=== PATIENT | female | born 1985 | race Caucasian/White ===

== ENCOUNTER 2021-10-20 08:32 | Outpatient (REF) | payer OTHER, SELFPAY ==
[2021-10-20 08:56] LABS: MANUAL DIFF FLAG NO
[2021-10-20 09:16] LABS: Basophils Percent Auto 0.5 % (0-2); Eosinophils Absolute Auto 0.1 X10*3/uL (0.0-0.4); Eosinophils Percent Auto 1.7 % (0-4); Hematocrit 37.5 % (37.0-47.0); Hemoglobin 12.2 g/dl (12.0-16.0); Imm Gran Abs Auto 0.01 X10*3/uL (0.00-0.03); Imm Gran Pct Auto 0.2 % (0.0-0.4); Lymphocytes Absolute Auto 1.6 X10*3/uL (1.2-4.9); Lymphocytes Percent Auto 38.9 % (20-40); Mean Corpuscular HGB Conc 32.5 g/dl (31.0-35.0); Mean Corpuscular Hemoglobin 28.9 pg (27.0-33.0); Mean Corpuscular Volume 88.9 fL (80.0-98.0); Mean Platelet Volume 9.3 fL (9.4-12.3); Monocytes Absolute Auto 0.4 X10*3/uL (0.1-1.2); Monocytes Percent Auto 8.8 % (2-11); Neutrophils Percent Auto 49.9 % (45-73); Platelet Count 214 X10*3/uL (160-400); Red Blood Count 4.22 X10*6/uL (4.20-5.50); Red Cell Distribution Width 12.9 % (11.0-16.0); White Blood Count 4.1 X10*3/uL (4.8-10.8)
[2021-10-20 09:48] LABS: Alanine Aminotransferase 12 U/L (0-31); Albumin Level 4.3 g/dL (3.5-5.0); Alkaline Phosphatase 43 U/L (39-117); Anion Gap 10 (12-20); Aspartate Amino Transferase 12 U/L (5-31); Blood Urea Nitrogen 12 mg/dL (9-16); Calcium 9.4 mg/dL (8.4-10.2); Carbon Dioxide 24 mmol/L (22-29); Chloride 107 mmol/L (96-108); Cholesterol 124 mg/dL; Estimated Glomerular Filt Rate > 60; Glucose Fasting 92 mg/dL (60-99); HDL Cholesterol 57 mg/dL; LDL Cholesterol Calculated 59 mg/dl; Potassium 4.4 mmol/L (3.3-5.1); Sodium 137 mmol/L (135-145); Total Protein 6.9 g/dL (6.5-8.0); Triglycerides 41 mg/dL
[2021-10-20 10:10] LABS: TSH reflex Free T4 1.53 uIU/mL (0.32-4.0)
== END 2021-10-20 08:33 | disposition home or self-care (01) ==
LOC: HO.LAB 08:32
PROVIDERS: PCP Nurse Practitioner Family; Visit Provider Nurse Practitioner Family
DX: J30.89 Other allergic rhinitis (principal); K59.00 Constipation, unspecified; E78.00 Pure hypercholesterolemia, unspecified; I10 Essential (primary) hypertension; Z76.89 Persons encountering health services in other specified circumstances
CPT/HCPCS: 36415; 80053; 80061; 84443; 85025

== ENCOUNTER 2022-11-17 08:57 | Outpatient (REF) | payer OTHER, SELFPAY ==
[2022-11-17 12:36] LABS: Alanine Aminotransferase 10 U/L (0-31); Albumin Level 4.1 g/dL (3.5-5.0); Alkaline Phosphatase 47 U/L (39-117); Anion Gap 10 (12-20); Aspartate Amino Transferase 13 U/L (5-31); Bilirubin Total 0.8 mg/dL (0.0-1.0); Blood Urea Nitrogen 14 mg/dL (9-16); Calcium 8.7 mg/dL (8.4-10.2); Carbon Dioxide 26 mmol/L (22-29); Chloride 108 mmol/L (96-108); Cholesterol 128 mg/dL; Estimated Glomerular Filt Rate > 60; Glucose Random 89 mg/dL (60-115); HDL Cholesterol 57 mg/dL; LDL Cholesterol Calculated 62 mg/dl; Potassium 4.5 mmol/L (3.3-5.1); Sodium 139 mmol/L (135-145); Total Protein 6.5 g/dL (6.5-8.0); Triglycerides 46 mg/dL
[2022-11-17 12:58] LABS: TSH reflex Free T4 1.18 uIU/mL (0.32-4.0)
== END 2022-11-17 08:58 | disposition home or self-care (01) ==
LOC: HO.LAB 08:57
PROVIDERS: PCP Nurse Practitioner Family; Visit Provider Nurse Practitioner Family
DX: Z13.21 Encounter for screening for nutritional disorder (principal); Z13.29 Encounter for screening for other suspected endocrine disorder; Z13.220 Encounter for screening for lipoid disorders; Z13.1 Encounter for screening for diabetes mellitus; E55.9 Vitamin D deficiency, unspecified
CPT/HCPCS: 36415; 80053; 80061; 82306; 84443

== ENCOUNTER 2023-02-20 08:51 | Outpatient (REF) | payer OTHER, SELFPAY ==
[2023-02-20 10:27] LABS: Vitamin D 25-OH Total 76.4 ng/mL (>30)
== END 2023-02-20 08:52 | disposition home or self-care (01) ==
LOC: HO.LAB 08:51
PROVIDERS: PCP Nurse Practitioner Family; Visit Provider Nurse Practitioner Family
DX: E55.9 Vitamin D deficiency, unspecified (principal)
CPT/HCPCS: 36415; 82306

== ENCOUNTER 2023-11-20 09:18 | Outpatient (AMB) | payer OTHER, SELFPAY ==
--- NOTE | 2023-11-20 09:37 | A.OFFPC_ITS ---
Vital Signs 11/20/23 09:49 Height 5 ft 9 in Weight 151 lb 6 oz BMI 22.4 BP 110/64 Blood Pressure Location Lt brachial Position Sitting Pulse 68 Pulse Source Pulse Oximeter Pulse Oximetry (%) 98 Oxygen Delivery Method Room Air Intake Visit Reasons: PE Intake Note: Patient is here today for a physical. Unit Aid Required: No Core Measures Abstractor: Not Required per policy Accompanied by: Self / Same As Patient Allergies No Known Allergies Allergy (Verified 12/01/23 15:27) Medication List - Last Reconciled 12/01/23 by Pankaj Alex MD polyethylene glycol 3350 (Miralax) 17 grams PO DAILY PRN Tobacco use date assessed: 11/20/23 Dental Screening Dental Screen Date: 11/20/23 Did you have a dental visit in the last 12 months?: Yes Did you have a dental problem in the last 6 months where you did not have access to dental care?: No Was dental information given to patient?: Patient has dentist HPI PE HPI Details 38-year-old female presents to the offic e requesting an annual physical. Patient is at baseline state of health with no concerns. She exercises regularly. 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 [facility] Medical History (Updated 11/20/22 @ 08:20 by PRAVIN Arias) Vitamin D deficiency Surgical History History of wisdom tooth extraction Family History Mother Hypothyroid Depression Father Hypertension Son Diabetes type 1, controlled Other Leukemia Social History Housing: House Patient Tobacco Use Status: Never used Tobacco e-Cigarette/Vaping Use: Never Used Second Hand Smoke Exposure: No service: No Current occupational status: employed Cognitive needs: No Hearing needs: No Vision needs: No Questionnaire PHQ-9 Over the last 2 weeks, how often have you been bothered by any of the following problems? 1. Little interest or pleasure in doing things: not at all 2. Feeling down, depressed, or hopeless: not at all 3. Trouble falling or staying asleep, or sleeping too much: not at all 4. Feeling tired or having little energy: not at all 5. Poor appetite or overeating: not at all 6. Feeling bad about yourself - or that you are a failure or have let yourself or your family down: not at all 7. Trouble concentrating on things, such as reading the newspaper or watching television: not at all 8. Moving or speaking so slowly that other people could have noticed. Or the opposite - being so fidgety or restless that you have been moving around a lot more than usual: not at all 9. Thoughts that you would be better off or of hurting yourself in some way: not at all Total score: 0 Depression Screening Interpretation: Negative Depression Screening Done: Yes Source: Developed by Drs. Zane Pickering, Shannan Butt, Shay Argueta and colleagues, with an educational tanya from [employer]. Thrive Questionnaire Date Thrive assessed: 11/20/23 I am a: Patient What is your living situation today?: I have a steady place to live Within the past 12 months, did the food you bought not last and you didn't have the money to get more?: Never true Within the past 12 months, did you worry whether your food would run out before you got money to buy more?: Never true Do you have trouble paying for medicines?: No Do you have trouble getting transportation to medical appointments?: No Do you have trouble paying your heating and electricity bill?: No Do you have trouble taking care of your child, family member or friend?: No Do you have trouble with day-to-day activities such as bathing, preparing meals, shopping, managing finances, etc.?: No Are you currently unemployed and looking for a job?: No Are you interested in more education?: No Currently or been in a relationship where the following occur: no concerns reported THRIVE Score: 0 AUDIT C Alcohol Use Questionnaire (AUDIT-C) 1. How often do you have a drink containing alcohol?: Never Total Score: 0 DOROTA-7 AMB Questionnaire DOROTA-7 Date DOROTA - 7 assessed: 11/20/23 Feeling nervous, anxious, or on edge: 0 = Not at all Not being able to stop or control worryin = Not at all Worrying too much about different things: 0 = Not at all Trouble relaxin = Not at all Being so restless that it is hard to sit still: 0 = Not at all Becoming easily annoyed or irritable: 0 = Not at all Feeling afraid as if something awful might happen: 0 = Not at all Total DOROTA-7 score (0-4 normal; 5-9 mild; 10-14 moderate; 15-21 severe): 0 Source: Developed by Drs. Zane Pickering, Shannan Butt, Shay Argueta and colleagues, with an educational tanya from [employer]. Physical exam (Primary Care) Vital Signs: Last Vital Signs Pulse 68 11/20/23 09:49 BP 110/64 11/20/23 09:49 Pulse Ox 98 11/20/23 09:49 Oxygen Delivery Method Room Air 11/20/23 09:49 Care Plan Goal for BP management: Blood pressure is in range. BMI result Body Mass Index 22.4 Tobacco/Smoking Status: Tobacco use Status Tobacco use date assessed 11/20/23 11/20/23 09:53 Patient Tobacco Use Status Never used Tobacco 11/20/23 09:53 e-Cigarette/Vaping Use Never Used 11/20/23 09:53 PHQ-9: PHQ-9 Score PHQ-9: Total score 0 11/30/23 20:37 Depression Screening Interpretation: Negative Thrive Assessment: Date of Thrive Assessment Date Thrive assessed 11/20/23 11/20/23 09:53 Currently or been in a relationship where the following occur: no concerns reported Const General: cooperative and healthy appearing Nutritional Appearance: well nourished Orientation/consciousness: patient oriented x3 Limitations: no limitations HENMT Head: Yes normal to inspection Eyes General: appearance normal, both eyes and all related structures Neck Neck: Yes normal visual inspection Chest Chest palpation & inspection: normal palpation of entire chest wall Resp Effort & Inspection: normal respiratory effort Neuro General: patient oriented x3 Assessment and Plan Assessment & Plan (1) Vitamin D deficiency: Code(s): E55.9 - Vitamin D deficiency, unspecified Plan: Blood work has been ordered. Will call with results. (2) Physical exam, annual: Code(s): Z00.00 - Encounter for general adult medical examination without abnormal findings Plan: Blood work has been ordered. Will follow. Orders: Orders Basic Metabolic Panel 11/22/23 E55.9 - Vitamin D deficiency, unspecified Thyroid Stimulating Hormone 11/22/23 E55.9 - Vitamin D deficiency, unspecified Vitamin D 25-OH (D2 and D3) 11/22/23 E55.9 - Vitamin D deficiency, unspecified Complete Blood Count no Diff 11/22/23 E55.9 - Vitamin D deficiency, unspecified Lipid Panel 11/22/23 E55.9 - Vitamin D deficiency, unspecified Liver Panel 11/22/23 E55.9 - Vitamin D deficiency, unspecified Coding Level of Care Code Est Pt Prev Care 18-39y(41502) Diagnoses Vitamin D deficiency E55.9 Physical exam, annual Z00.00
[2023-11-20 09:49] VITALS: BP 110/64; PULSE 68; O2SAT 98; BMI 22.4
== END 2023-11-20 10:30 | disposition home or self-care (01) ==
PROVIDERS: PCP Internal Medicine; Visit Provider Internal Medicine
DX: E55.9 Vitamin D deficiency, unspecified (principal); Z00.00 Encounter for general adult medical examination without abnormal findings
CPT/HCPCS: 99395

== ENCOUNTER 2023-11-22 08:46 | Outpatient (REF) | payer OTHER, SELFPAY ==
[2023-11-22 09:28] LABS: Hematocrit 39.7 % (37.0-47.0); Hemoglobin 13.4 g/dl (12.0-16.0); Mean Corpuscular HGB Conc 33.8 g/dl (31.0-35.0); Mean Corpuscular Hemoglobin 29.8 pg (27.0-33.0); Mean Corpuscular Volume 88.4 fL (80.0-98.0); Mean Platelet Volume 9.3 fL (9.4-12.3); Platelet Count 204 X10*3/uL (160-400); Red Blood Count 4.49 X10*6/uL (4.20-5.50); Red Cell Distribution Width 12.7 % (11.0-16.0); White Blood Count 3.7 X10*3/uL (4.8-10.8)
[2023-11-22 10:05] LABS: Alanine Aminotransferase 13 U/L (0-31); Albumin Level 4.3 g/dL (3.5-5.0); Alkaline Phosphatase 40 U/L (39-117); Anion Gap 9 (12-20); Aspartate Amino Transferase 13 U/L (5-31); Bilirubin Direct 0.4 mg/dL (0.0-0.5); Bilirubin Total 1.4 mg/dL (0.0-1.0); Blood Urea Nitrogen 13 mg/dL (9-16); Calcium 9.5 mg/dL (8.4-10.2); Carbon Dioxide 25 mmol/L (22-29); Chloride 109 mmol/L (96-108); Cholesterol 130 mg/dL (<200); Estimated Glomerular Filt Rate > 60; Glucose Random 91 mg/dL (60-115); HDL Cholesterol 63 mg/dL (>40); LDL Cholesterol Calculated 59 mg/dL (<100); Potassium 4.2 mmol/L (3.3-5.1); Sodium 139 mmol/L (135-145); Total Protein 7.3 g/dL (6.5-8.0); Triglycerides 40 mg/dL (<150)
[2023-11-22 10:25] LABS: Thyroid Stimulating Hormone 1.41 uIU/mL (0.32-4.0)
[2023-11-26 23:09] LABS: Vitamin D 25-OH, D2 <4 ng/mL; Vitamin D 25-OH, D3 17 ng/mL; Vitamin D 25-OH, Total 17 ng/mL (30-100)
== END 2023-11-22 08:47 | disposition home or self-care (01) ==
LOC: HO.LAB 08:46
PROVIDERS: PCP Internal Medicine; Visit Provider Internal Medicine
DX: Z13.6 Encounter for screening for cardiovascular disorders (principal); E55.9 Vitamin D deficiency, unspecified
CPT/HCPCS: 36415; 80048; 80061; 80076; 82306; 84443; 85027

== ENCOUNTER 2024-11-27 13:58 | Outpatient (AMB) | payer OTHER, SELFPAY ==
--- NOTE | 2024-11-27 14:03 | A.OFFPC_ITS ---
Vital Signs 11/27/24 14:05 Height 5 ft 9 in Weight 150 lb 8 oz BMI 22.2 BP 110/68 Blood Pressure Location Lt brachial Position Sitting Pulse 67 Pulse Source Pulse Oximeter Temp 97.1 F Temp Source Temporal Artery Scan Pulse Oximetry (%) 98 Oxygen Delivery Method Room Air Intake Visit Reasons: Annual Exam Intake Note: Patient is here today for a physical. Corporate Quality Assurance Manager Required: No Dough Mixer: Not Required per policy Accompanied by: Self / Same As Patient Allergies No Known Allergies Allergy (Verified 11/27/24 14:33) Medication List - Last Reconciled 11/27/24 by Neelam Harrison PA-C loratadine-pseudoephedrine 5-120 mg ER (Claritin-D 12 Hour) 1 tab PO Q12H polyethylene glycol 3350 (Miralax) 17 grams PO DAILY PRN Tobacco use date assessed: 11/27/24 Dental Screening Dental Screen Date: 11/27/24 Did you have a dental visit in the last 12 months?: Yes Did you have a dental problem in the last 6 months where you did not have access to dental care?: No Was dental information given to patient?: Patient has dentist [facility] Medical History (Updated 11/27/24 @ 14:48 by Neelam Harrison PA-C) Total bilirubin, elevated Leukopenia History of mammogram (~09/05/24) Lump of right breast Annual physical exam Sinus headache Sinus congestion Vitamin D deficiency Surgical History History of wisdom tooth extraction Family History Mother Hypothyroid Depression Father Hypertension Lung cancer Son Diabetes type 1, controlled Other Leukemia Social History Housing: House Patient Tobacco Use Status: Never used Tobacco e-Cigarette/Vaping Use: Never Used Second Hand Smoke Exposure: No service: No Current occupational status: employed Cognitive needs: No Hearing needs: No Vision needs: No Questionnaire PHQ-9 Over the last 2 weeks, how often have you been bothered by any of the following problems? 1. Little interest or pleasure in doing things: not at all 2. Feeling down, depressed, or hopeless: not at all 3. Trouble falling or staying asleep, or sleeping too much: not at all 4. Feeling tired or having little energy: not at all 5. Poor appetite or overeating: not at all 6. Feeling bad about yourself - or that you are a failure or have let yourself or your family down: not at all 7. Trouble concentrating on things, such as reading the newspaper or watching television: not at all 8. Moving or speaking so slowly that other people could have noticed. Or the o pposite - being so fidgety or restless that you have been moving around a lot more than usual: not at all 9. Thoughts that you would be better off or of hurting yourself in some way: not at all Total score: 0 Depression Screening Interpretation: Negative Depression Screening Done: Yes 50392 - PHQ-9 Billing: Yes Source: Developed by Drs. Zane Pickering, Shannan Butt, Shay Argueta and colleagues, with an educational tanya from [employer]. Thrive Questionnaire Date Thrive assessed: 11/20/24 I am a: Patient What is your living situation today?: I have a steady place to live Within the past 12 months, did the food you bought not last and you didn't have the money to get more?: Never true Within the past 12 months, did you worry whether your food would run out before you got money to buy more?: Never true Do you have trouble paying for medicines?: No Do you have trouble getting transportation to medical appointments?: No Do you have trouble paying your heating and electricity bill?: No Do you have trouble taking care of your child, family member or friend?: No Do you have trouble with day-to-day activities such as bathing, preparing meals, shopping, managing finances, etc.?: No Are you currently unemployed and looking for a job?: No Are you interested in more education?: No Please select the resources that you would like help with: None Currently or been in a relationship where the following occur: No concerns reported THRIVE Score: 0 AUDIT C Alcohol Use Questionnaire (AUDIT-C) 1. How often do you have a drink containing alcohol?: Never Total Score: 0 Score Reviewed/Action Taken: No DOROTA-7 AMB Questionnaire DOROTA-7 Date DOROTA - 7 assessed: 11/27/24 Feeling nervous, anxious, or on edge: 0 = Not at all Not being able to stop or control worryin = Not at all Worrying too much about different things: 0 = Not at all Trouble relaxin = Not at all Being so restless that it is hard to sit still: 0 = Not at all Becoming easily annoyed or irritable: 0 = Not at all Feeling afraid as if something awful might happen: 0 = Not at all Total DOROTA-7 score (0-4 normal; 5-9 mild; 10-14 moderate; 15-21 severe): 0 Source: Developed by Drs. Zane Pickering, Shannan Butt, Shay Argueta and colleagues, with an educational tanya from [employer]. DOROTA-7 Assessment Billing DOROTA-7 Assessment Tool: DOROTA-7 Assessment 23155 Physical exam (Primary Care) Vital Signs: Last Vital Signs Temp 97.1 F 11/27/24 14:05 Pulse 67 11/27/24 14:05 BP 110/68 11/27/24 14:05 Pulse Ox 98 11/27/24 14:05 Oxygen Delivery Method Room Air 11/27/24 14:05 Care Plan Goal for BP management: <130/80 at Goal BMI result Body Mass Index 22.2 normal bmi Tobacco/Smoking Status: Tobacco use Status Tobacco use date assessed 11/27/24 11/27/24 14:10 Patient Tobacco Use Status Never used Tobacco 11/27/24 14:10 e-Cigarette/Vaping Use Never Used 11/27/24 14:10 PHQ-9: PHQ-9 Score PHQ-9: Total score 0 11/27/24 14:10 Depression Screening Interpretation: Negative Thrive Assessment: Date of Thrive Assessment Date Thrive assessed 11/20/24 11/27/24 14:10 Currently or been in a relationship where the following occur: No concerns reported Coding Level of Care Code Est Pt Prev Care 40-64y([id number]) Diagnoses Vitamin D deficiency E55.9 Environmental and seasonal allergies J30.89 Sinus congestion R09.81 Sinus headache R51.9 Annual physical exam Z00.00 Constipation K59.00 Lump of right breast N63.10 Leukopenia D72.819 Total bilirubin, elevated R17 Additional Codes PHQ-9 - 47318 - PHQ-9 Billing: Yes ([id number]) DOROTA-7 Assessment Billing - DOROTA-7 Assessment Tool: DOROTA-7 Assessment 10565 ([id number]) Assessment & Plan Assessment & Plan (1) Vitamin D deficiency: Code(s): E55.9 - Vitamin D deficiency, unspecified Category: Medical Plan: Patient reports she is not taking her vitamin-D supplements as she reports she took it for approximately 1 year. We will reassess levels and if vitamin-D is still low patient will start to retake vitamin-D supplements daily. Condition is chronic and stable continue to monitor. (2) Environmental and seasonal allergies: Code(s): J30.89 - Other allergic rhinitis Category: Medical Plan: Patient reports history of environmental or seasonal allergies she is unsure. Has tried multiple allergy medications in the past unsuccessful treatment. She reports she has never been seen by an sales representative printing. Will refer to an sales representative printing. Patient will be started on Claritin D as needed. Condition is chronic and stable continue to monitor. (3) Sinus congestion: Code(s): R09.81 - Nasal congestion Category: Medical Plan: Patient will be started on Claritin D as needed. Will order CT of sinuses. Refer to ENT. Condition is chronic and stable continue to monitor. (4) Sinus headache: Code(s): R51.9 - Headache, unspecified Category: Medical Plan: Patient will be started on Claritin D as needed. Will order CT of sinuses. Refer to ENT. Condition is chronic and stable continue to monitor. [place] (5) Annual physical exam: Code(s): Z00.00 - Encounter for general adult medical examination without abnormal findings Category: Medical (6) Constipation: Code(s): K59.00 - Constipation, unspecified Category: Medical (7) Lump of right breast: Comment: Patient having mammogram and US of Right breast regularly by [facility]. Last US and Mammogram 08/2024. Code(s): N63.10 - Unspecified lump in the right breast, unspecified quadrant Category: Medical Plan: Patient is being followed by OBGYN and [place]. Having regular HPV screening/Pap smears along with mammograms and ultrasound of the right breast due to a right breast lump. Condition is chronic and stable continue to monitor. (8) Leukopenia: Code(s): D72.819 - Decreased white blood cell count, unspecified Category: Medical Plan: Patient has a chronically low white blood cell count at 3.7. Condition is chronic and stable continue to monitor. (9) Total bilirubin, elevated: Code(s): R17 - Unspecified jaundice Category: Medical Plan: Patient has elevated total bilirubin of 1.4. Patient denies any abdominal pain. Condition is chronic and stable continue to monitor. Plan Plan Patient was informed and verbally consented to the use of an ambient scribe for clinic note documentation during this visit. 1. Other allergic rhinitis Refer to sales representative printing for further evaluation and start Claritin D trial for symptomatic relief in the interim. 2. Breast Lump Monitor previous imaging results and consider further consultation if necessary. 3. Chronic sinusitis, unspecified Schedule a sinus CT scan to assess underlying causes of chronic congestion and trial Claritin D for relief. 4. Other constipation Advise on MiraLAX use as needed, focusing on hydration and dietary fiber. 5. Vitamin D Deficiency Continue vitamin D supplementation and retest levels with upcoming blood work to reassess needs. Discussion Notes During the visit, I conversed with the patient regarding her irregular white blood cell count and elevated bilirubin, reiterating no symptomatic concern at present but recommending ongoing monitoring through routine blood work. We explored her allergy symptoms, considering an sales representative printing referral for a thorough evaluation. Regarding sinus congestion causing frequent headaches, I suggested a CT scan for potential sinusitis or structural issues and trialed Claritin D as an interim measure for symptom relief. Breast health was discussed concerning her long-standing lump, which recent imaging has confirmed remains unchanged. The patient's family history of Type 1 diabetes and thyroid issues was noted, and the relevant screenings were planned. Additionally, we examined potential causes of familial Type 1 diabetes as her son is affected, given the non- hereditary aspect within the family. Orders: Orders Erythrocyte Sedimentation Rate Today Z00.00 - Encounter for general adult medical examination without abnormal findings Lipid Panel Today Z00.00 - Encounter for general adult medical examination without abnormal findings Magnesium Today Z00.00 - Encounter for general adult medical examination without abnormal findings Parathyroid Hormone Intact Today Z00.00 - Encounter for general adult medical examination without abnormal findings Zinc Today Z00.00 - Encounter for general adult medical examination without abnormal findings TSH reflex Free T4 Today Z00.00 - Encounter for general adult medical examination without abnormal findings Complete Blood Count Auto Diff Today Z00.00 - Encounter for general adult medical examination without abnormal findings Comprehensive [place]. Panel Fast Today Z00.00 - Encounter for general adult medical examination without abnormal findings C Reactive Protein Today Z00.00 - Encounter for general adult medical examination without abnormal findings Hemoglobin A1c Today Z00.00 - Encounter for general adult medical examination without abnormal findings Liver Panel Today Z00.00 - Encounter for general adult medical examination without abnormal findings Vitamin B12 and Folate Today Z00.00 - Encounter for general adult medical examination without abnormal findings Vitamin D 25-OH Total Today Z00.00 - Encounter for general adult medical examination without abnormal findings Vitamin B1 Today Z00.00 - Encounter for general adult medical examination without abnormal findings CT sinus wo IV con Today E55.9 - Vitamin D deficiency, unspecified, J30.89 - Other allergic rhinitis, R09.81 - Nasal congestion, R51.9 - Headache, unspecified Referrals Ear/Nose/Throat Referral J30.89 - Other allergic rhinitis, R09.81 - Nasal congestion, R51.9 - Headache, unspecified Allergy & Immunology Referral J30.89 - Other allergic rhinitis Medications: New loratadine-pseudoephedrine 5-120 mg ER (Claritin-D 12 Hour) 1 tab PO Q12H 30 tabs 0RF Patient Instructions: Patient Instructions - Continue taking vitamin D supplements as previously prescribed; upcoming blood work will confirm ongoing needs. - Try Claritin D for three days to see if it helps with allergy symptoms. If there?s no improvement or worsening of symptoms, let us know. - Fasting blood work is required; avoid eating for at least 10-12 hours before your lab appointment. - For sinus issues, a CT scan will be scheduled; the imaging center will contact you with the appointment details. - Keep monitoring the breast lump; follow up if there are changes or concerns. - Stay hydrated and consume a fiber-rich diet to manage constipation effectively. - Schedule allergy testing with Dr. Weinberg when availability allows. - Make a follow-up appointment for one year or sooner if new symptoms arise. Scribe Plan - Not visible on output: History of Present Illness The patient is a 39-year-old female presenting for an annual exam. She has a notable medical history of vitamin D deficiency, which she has been managing with supplements over the past year. Environmental and seasonal allergies have been problematic, causing frequent nasal congestion that has not improved significantly with [id number] treatments. No sales representative printing consultation has occurred. Her chronic sinus congestion has led to regular headaches, without specific patterns of exacerbation or relief identifiable at home. The patient has also been managing intermittent constipation with MiraLAX, though this has not been necessary for recent episodes. Recent blood work evidenced a persistent low white blood cell count and an elevated bilirubin level, with no symptoms suggestive of liver compromise, such as abdominal pain, noted. Family history includes significant concerns such as her father's lung cancer, her mother's hypothyroidism, and her son's Type 1 diabetes. She has experienced a breast lump on the right side for years, with recent imaging confirming its presence. 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 - Family: Lives with her and children; her son is about to turn 16. - Smoking/Drug Use: Denies smoking or illicit drug use. - Education and Background: Originally from [place], now residing near [place]. - Family Dynamics: Expresses enjoyment of teaching and living in the local community. Review of Systems - Nose/Sinuses: Reports chronic congestion and pressure, with frequent headaches. - Ears: Reports fluid presence. - Abdominal: Denies abdominal pain or changes in bowel habits currently. - Cardiovascular: Denies chest pain or palpitations. - Musculoskeletal: Denies any joint pains or swelling. Physical Exam Appearance: Alert. Oriented X3. No acute distress. Head: Normal external exam. Normocephalic. Atraumatic. Eyes: Pupils are equal, round, and reactive to light. Extraocular movements intact. Conjunctiva and sclera normal. Eyelids normal. Ears: Fluid in the ears noted. No pain upon pressure. Throat: Pharynx normal. Uvula midline. Moist mucous membranes. Neck: Normal inspection. Neck supple. Full range of motion. No adenopathy. Thyroid Normal. No meningeal signs. No neck mass noted. Cardiovascular: Normal heart rate and rhythm. Heart sound normal. No murmurs noted. Pulses normal throughout. Respiratory: No respiratory distress. Painless inspiration. Breath sounds normal. No wheezes/rales/rhonchi noted. Chest nontender. No accessory muscle usage noted or decreased air movement noted. Abdomen: Soft and nontender. Bowel sounds normal in all 4 quadrants. No distention noted. No organomegaly noted. No visible injury noted. Back: No costovertebral angle tenderness. Full range of motion noted. Skin: Skin warm and dry. Normal skin color. Normal skin turgor. No rashes/lesions/lacerations noted. Extremities: No lower extremity edema. Extremities exhibit normal range of motion. Extremities nontender. Neuro: Oriented X 3. No motor deficit. No sensory deficit. Reflexes normal. Results - Labs: - Previous lab reports indicate low white blood cell count. - Elevated bilirubin level in past results. - Cholesterol levels noted to be in excellent range. - Diagnostics: - Recent mammogram and breast ultrasound conducted in August 2023.
[2024-11-27 14:05] VITALS: BP 110/68; PULSE 67; TEMP 36.2; O2SAT 98; BMI 22.2
== END 2024-11-27 14:31 | disposition home or self-care (01) ==
LOC: HO.HMCH 13:59
PROVIDERS: PCP Internal Medicine; Visit Provider Physician Assistant Medical
DX: E55.9 Vitamin D deficiency, unspecified (principal); J30.89 Other allergic rhinitis; R09.81 Nasal congestion; R51.9 Headache, unspecified; Z00.00 Encounter for general adult medical examination without abnormal findings; K59.00 Constipation, unspecified; N63.10 Unspecified lump in the right breast, unspecified quadrant; D72.819 Decreased white blood cell count, unspecified; R17 Unspecified jaundice

== ENCOUNTER → 2024-11-27 13:58 | Outpatient (BNVA) | payer OTHER, SELFPAY | PROVIDERS: PCP Internal Medicine; Visit Provider Physician Assistant Medical | DX: Z00.00 Encounter for general adult medical examination without abnormal findings (principal); E55.9 Vitamin D deficiency, unspecified; J30.89 Other allergic rhinitis; R09.81 Nasal congestion; R51.9 Headache, unspecified; K59.00 Constipation, unspecified; N63.10 Unspecified lump in the right breast, unspecified quadrant; D72.819 Decreased white blood cell count, unspecified; R17 Unspecified jaundice | CPT/HCPCS: 96127 ==

== ENCOUNTER 2024-12-11 08:53 | Outpatient (REF) | payer OTHER, SELFPAY ==
[2024-12-11 09:13] LABS: MANUAL DIFF FLAG NO
[2024-12-11 09:31] LABS: Basophils Percent Auto 1.1 % (0-2); Eosinophils Percent Auto 1.1 % (0-4); Hematocrit 38.6 % (37.0-47.0); Hemoglobin 12.9 g/dl (12.0-16.0); Imm Gran Abs Auto 0.01 X10*3/uL (0.00-0.03); Imm Gran Pct Auto 0.3 % (0.0-0.4); Lymphocytes Absolute Auto 1.2 X10*3/uL (1.2-4.9); Lymphocytes Percent Auto 34.4 % (20-40); Mean Corpuscular HGB Conc 33.4 g/dl (31.0-35.0); Mean Corpuscular Hemoglobin 29.5 pg (27.0-33.0); Mean Corpuscular Volume 88.1 fL (80.0-98.0); Mean Platelet Volume 9.3 fL (9.4-12.3); Monocytes Absolute Auto 0.3 X10*3/uL (0.1-1.2); Monocytes Percent Auto 7.8 % (2-11); Neutrophils Percent Auto 55.3 % (45-73); Platelet Count 217 X10*3/uL (160-400); Red Blood Count 4.38 X10*6/uL (4.20-5.50); Red Cell Distribution Width 12.7 % (11.0-16.0); White Blood Count 3.6 X10*3/uL (4.8-10.8)
[2024-12-11 10:03] LABS: Alanine Aminotransferase 13 U/L (0-31); Albumin Level 4.2 g/dL (3.5-5.0); Alkaline Phosphatase 43 U/L (39-117); Anion Gap 10 (12-20); Aspartate Amino Transferase 14 U/L (5-31); Bilirubin Direct 0.3 mg/dL (0.0-0.5); Bilirubin Total 0.8 mg/dL (0.0-1.0); Blood Urea Nitrogen 12 mg/dL (9-16); C Reactive Protein < 0.10 mg/dL (< or = 0.50); Calcium 9.3 mg/dL (8.4-10.2); Carbon Dioxide 25 mmol/L (22-29); Chloride 109 mmol/L (96-108); Cholesterol 124 mg/dL (<200); Estimated Glomerular Filt Rate > 60; Glucose Fasting 90 mg/dL (60-99); HDL Cholesterol 67 mg/dL (>40); LDL Cholesterol Calculated 51 mg/dL (<100); Potassium 4.4 mmol/L (3.3-5.1); Sodium 140 mmol/L (135-145); Total Protein 6.9 g/dL (6.5-8.0); Triglycerides 30 mg/dL (<150)
[2024-12-11 10:15] LABS: Erythrocyte Sedimentation Rate 5 MM/HR (0-20)
[2024-12-11 10:18] LABS: TSH reflex Free T4 1.21 uIU/mL (0.32-4.0); Vitamin D 25-OH Total 72.2 ng/mL (>30)
[2024-12-11 10:40] LABS: Estimated Average Glucose 100 mg/dL; Hemoglobin A1C 109.6374 umol/L; Hemoglobin A1c % 5.1 % (<6.0); Total Hemoglobin (HGBA1C) 3452.4873 umol/L
[2024-12-11 10:58] LABS: Parathyroid Hormone Intact 34.9 pg/mL (8.7-77.1)
[2024-12-11 14:48] LABS: Vitamin B12 566 pg/mL (200-900)
[2024-12-15 10:09] LABS: Zinc 69 mcg/dL (60-130)
[2024-12-18 15:47] LABS: Vitamin B1 18 nmol/L (8-30)
== END 2024-12-11 08:54 | disposition home or self-care (01) ==
LOC: HO.LAB 08:53
PROVIDERS: PCP Physician Assistant Medical; Visit Provider Physician Assistant Medical
DX: Z00.00 Encounter for general adult medical examination without abnormal findings (principal)
CPT/HCPCS: 36415; 80053; 80061; 80076; 82248; 82306; 82607; 82746; 83036; 83735; 83970; 84425; 84443; 84630; 85025; 85652; 86140